=== PATIENT | male | born 1980 | race African-American/Black ===

== ENCOUNTER 2020-12-19 16:31 | Emergency (ER) | payer BC, MEDICAID ==
[~2020-12-19] VITALS: Ht 162.6 cm; Wt 99.3 kg
--- NOTE | 2020-12-19 16:41 | NUR ---
BIBR FROM [facility] TO ER BED 6. AAOX4. NOT IN RESP DISTRESS. BROUGHT IN FOR LOWER BACK PAIN THAT GOT WORST WHILE DOING A CHIROPRACTIC SESION. PAIN IS RATED 10/10 SHARP AND TIGHT. PT VERBALIZEDS THAT HE CAN WALK BECAUSE OF THE PAIN.AWAITING PROVIDER FOR EVAL.
[2020-12-19] MEDS ORDERED: DIAZEPAM 5 MG TABLET ONE (16:48)
[2020-12-19] MEDS ORDERED: KETOROLAC TROMETHAMINE INJ 30 MG/ML VIAL ONE (16:48)
[2020-12-19] MEDS: DIAZEPAM 5 MG TABLET PO ONE (16:53)
[2020-12-19] MEDS: KETOROLAC TROMETHAMINE INJ 60 MG/2 ML VIAL IM ONE (16:53)
[2020-12-19] MEDS: HYDROCODONE/APAP 10/325MG TABLET PO ONE (17:55)
[2020-12-19 18:10] LABS: BILIRUBIN,URINE Negative (NEGATIVE); COLOR,URINE YELLOW (YELLOW); LEUKOCYTE ESTERASE ,URINE Negative (NEGATIVE); NITRITE, URINE Negative (NEGATIVE); PROTEIN,URINE Negative (NEGATIVE); UGLUCOSE Negative (NEGATIVE); UROBILINOGEN,URINE 0.2 EU/dL (0.2)
[2020-12-19] MEDS ORDERED: IBUP-1957 PO (18:29)
[2020-12-19] MEDS ORDERED: DIAZ5TAB PO (18:29)
[2020-12-19] MEDS: HYDROMORPHONE 1 MG/1 ML DISP.SYRIN IM ONE (19:06)
--- NOTE | 2020-12-19 19:11 | NUR ---
pt to ct on [address]
[2020-12-19] MEDS ORDERED: METH4TAB3 PO (20:07)
--- NOTE | 2020-12-19 20:20 | NUR ---
PT IS ABLE TO STAND AND WALK SHORT DISTANCE.
[2020-12-19 21:18] VITALS: BP 113/52
== END 2020-12-19 20:42 | disposition home or self-care (01) ==
LOC: ER 16:33
DX: M62.830 Muscle spasm of back (principal); M51.36 Other intervertebral disc degeneration, lumbar region; G89.29 Other chronic pain; J45.909 Unspecified asthma, uncomplicated; Z88.5 Allergy status to narcotic agent; Z79.899 Other long term (current) drug therapy
CPT/HCPCS: 72131; 81003; 96372 ×2; 99284; J1170; J1885